=== PATIENT | male | born 1970 | race Two or more races ===

== ENCOUNTER 2018-09-12 02:24 | Inpatient (IN) | payer MEDICAID ==
[~2018-09-12] VITALS: Ht 170.2 cm; Wt 92.8 kg
[2018-09-12 04:38] LABS: BASOPHILS % (AUTO) 0.2 % (0.0-2.0); EOSINOPHILS % (AUTO) 0.2 % (1.0-6.0); HEMATOCRIT 48.7 % (41-53); HEMOGLOBIN 16.5 g/dL (13.5-17.5); LYMPHOCYTES # (AUTO) 0.9 K/uL (1.0-4.8); LYMPHOCYTES % (AUTO) 7.6 % (22.0-44.0); MEAN CORPUSCULAR HEMOGLOBIN 30.8 pg (26.0-34.0); MEAN CORPUSCULAR HGB CONC 33.9 G/dL (31.0-37.0); MEAN CORPUSCULAR VOLUME 91 fL (80-100); MONOCYTES # (AUTO) 0.5 K/uL (0.1-1.0); MONOCYTES % (AUTO) 3.9 % (2.0-9.0); NEUTROPHILS # (AUTO) 10.9 K/uL (1.8-7.7); PLATELET COUNT (AUTO) 198 K/uL (150-450); RED BLOOD CELL COUNT(AUTO) 5.36 MIL/uL (4.50-5.90); RED CELL DISTRIBUTION WIDTH 13.4 % (11.5-14.5)
[2018-09-12 04:39] LABS: NEUTROPHILS % (AUTO) 88.1 % (40.0-70.0)
[2018-09-12 04:42] LABS: ANION GAP 10 mmol/L (8-16); CALCIUM, TOTAL 9.8 mg/dL (8.8-10.5); CARBON DIOXIDE 29 mmol/L (22-29); CHLORIDE 100 mmol/L (98-107); CREATININE 1.17 mg/dL (0.60-1.30); GLOMERULAR FILTR. RATE CALC > 60 mL/min (>60); GLUCOSE,RANDOM 149 mg/dL (70-110); POTASSIUM 3.8 mmol/L (3.5-5.1); SODIUM SERUM 139 mmol/L (136-145); UREA NITROGEN, BLOOD 21 mg/dL (7-18)
[2018-09-12 04:48] LABS: ALANINE AMINOTRANSFERASE 38 U/L (12-78); ALBUMIN 4.5 g/dL (3.4-5.0); ALKALINE PHOSPHATASE 88 U/L (46-116); ASPARTATE AMINOTRANSFERASE 21 U/L (15-37); BILIRUBIN,TOTAL 0.4 mg/dL (0.1-1.0); LIPASE 101 U/L (73-393)
[2018-09-12 05:07] LABS: APPEARANCE,URINE CLOUDY (CLEAR); BILIRUBIN,URINE NEGATIVE (NEGATIVE); GLUCOSE, URINE (UA) NEGATIVE (NEGATIVE); KETONES,URINE TRACE mg/dL (NEGATIVE); LEUKOCYTE ESTERASE ,URINE NEGATIVE (NEGATIVE); NITRATE,URINE NEGATIVE (NEGATIVE); OCCULT BLOOD,URINE NEGATIVE (NEGATIVE); PH,URINE 5.5 (5.0-8.0); PROTEIN,URINE TRACE (NEGATIVE); UROBILINOGEN,URINE 0.2 mg/dL (<=1.0)
[2018-09-12] MEDS ORDERED: IOVERSOL 350 MG/ML 150 ML VIAL ONE (07:26)
[2018-09-12] MEDS ORDERED: SODIUM CHLORIDE 0.9% 100 ML ONE (07:26)
[2018-09-12] MEDS ORDERED: SODIUM CHLORIDE 0.9% 1,000 ML IV ONE (07:30)
[2018-09-12] MEDS ORDERED: ONDANSETRON HCL 4 MG/2 ML VIAL IVP ONE (07:30)
[2018-09-12] MEDS ORDERED: BARIUM SULFATE 0.1% SUSPENSION 450 ML BOTTLE PO ONE (07:30)
[2018-09-12] MEDS ORDERED: ONDANSETRON HCL 4 MG/2 ML VIAL IVP PRN ×2 (10:00→23:45)
[2018-09-12] MEDS ORDERED: POTASSIUM CHL 20 MEQ/D5-0.45NS 1,000 ML IV ONE (10:00)
[2018-09-12] MEDS ORDERED: 0.9% SODIUM CHLORIDE 10 ML SYRINGE IVP PRN (10:00)
[2018-09-12] MEDS ORDERED: PANTOPRAZOLE SODIUM 40 MG/VIAL IVP ONE (10:00)
[2018-09-12] MEDS: PANTOPRAZOLE SODIUM 80 MG in SODIUM CHLORIDE 0.9% 100 ML IV SCH ×2 (10:40→21:52)
[2018-09-12 12:44] VITALS: BP 118/69
[2018-09-12 16:23] VITALS: BP 123/62
[2018-09-12 20:15] VITALS: BP 129/69
[2018-09-12] MEDS ORDERED: SODIUM CHLORIDE 0.9% 500 ML IV ONE (20:52)
[2018-09-12] MEDS ORDERED: ALBUTEROL SULFATE 2.5 MG/0.5 ML NEB SOLUTION NEB PRN (23:45)
[2018-09-12] MEDS ORDERED: MAGNESIUM HYDROXIDE SUSPENSION 30 ML UDCUP PO PRN (23:45)
[2018-09-12] MEDS ORDERED: IPRATROPIUM BROMIDE 0.5 MG/2.5 ML NEB SOLUTION NEB PRN (23:45)
[2018-09-12] MEDS ORDERED: ACETAMINOPHEN 325 MG TABLET PO PRN (23:45)
[2018-09-12] MEDS ORDERED: BISACODYL 10 MG RECTAL RECTAL SUPPOSITORY PR PRN (23:45)
[2018-09-12] MEDS ORDERED: HYDROCODONE/ACETAMINOPHEN 5-325 MG TABLET PO PRN (23:45)
[2018-09-12] MEDS ORDERED: MORPHINE SULFATE 2 MG/ML SYRINGE IVP PRN (23:45)
[2018-09-12] MEDS ORDERED: ZOLPIDEM TARTRATE 5 MG TABLET PO PRN (23:45)
[2018-09-12] MEDS: HEPARIN SODIUM,PORCINE 5,000 UNITS/ML VIAL SQ SCH (23:58)
[2018-09-13 00:21] VITALS: BP 103/61
[2018-09-13 04:58] VITALS: BP 105/55
[2018-09-13 08:34] VITALS: BP 105/65
[2018-09-13] MEDS ORDERED: DOCUSATE SODIUM 100 MG CAPSULE PO SCH (09:00)
[2018-09-13] MEDS: HEPARIN SODIUM,PORCINE 5,000 UNITS/ML VIAL SQ SCH (09:39)
[2018-09-13 12:04] VITALS: BP 120/62
== END 2018-09-13 14:00 | disposition home or self-care (01) | DRG 249 ==
LOC: EMS 02:34 → 5N 12:20
PROVIDERS: ADMIT Internal Medicine; ATTEND Internal Medicine
DX: K52.9 Noninfective gastroenteritis and colitis, unspecified (principal); Z83.3 Family history of diabetes mellitus
CPT/HCPCS: 74022; 74177; 96361; 96374; C9113; G0378; J1644; J2405; J3480; J7030; J7040; J7050